=== PATIENT | female | born 1965 | race Two or more races ===

== ENCOUNTER 2022-06-17 04:28 | Day surgery (SDC) | payer OTHER ==
[2022-06-12 11:39] VITALS: BMI 29.7
[~2022-06-17 04:28] MED LIST: BUPIVACAINE HCL/PF 0.75% 10 ML VIAL NR ONE; LIDOCAINE 1% P/F 10 MG/ML VIAL INF ONE
[2022-06-17] MEDS ORDERED: BUPIVACAINE HCL/PF 0.75% 10 ML VIAL ONE (07:33)
[2022-06-17] MEDS ORDERED: LIDOCAINE HCL/PF 1% SDV 5ML VIAL ONE (07:34)
[2022-06-17 09:43] VITALS: RESP 18
[2022-06-17] MEDS ORDERED: LIDOCAINE 1% P/F 10 MG/ML VIAL INF ONE (12:51)
[2022-06-17] MEDS ORDERED: BUPIVACAINE HCL/PF 0.75% 10 ML VIAL NR ONE (12:53)
[2022-06-17 14:51] VITALS: TEMP 97.8
[2022-06-17 14:56] VITALS: BP 109/72; PULSE 72
== END 2022-06-17 13:45 | disposition home or self-care (01) ==
LOC: JASU-SURG 04:28
PROVIDERS: ATTEND Pain Medicine Pain Medicine
PROC: BR16YZZ Fluoroscopy of Lumbar Facet Joint(s) using Other Contrast (ICD-10-PCS; 2022-06-17)
PROC: 3E0T3BZ Introduction of Anesthetic Agent into Peripheral Nerves and Plexi, Percutaneous Approach (ICD-10-PCS; principal; 2022-06-17 11:30)
DX: M47.816 Spondylosis without myelopathy or radiculopathy, lumbar region (principal)
CPT/HCPCS: 76000-TC-FY

== ENCOUNTER 2023-04-14 04:03 | Day surgery (SDC) | payer OTHER ==
[2023-04-09 13:29] VITALS: BMI 29.7
[2023-04-14] MEDS ORDERED: BUPIVACAINE HCL/PF 0.75% 10 ML VIAL ONE (07:20)
[2023-04-14] MEDS ORDERED: LIDOCAINE HCL/PF 1% SDV 5ML VIAL ONE (07:20)
[2023-04-14] MEDS ORDERED: LIDOCAINE HCL 1%, 10 MG/ML (20ML VIAL) INF ONE (10:11)
[2023-04-14] MEDS ORDERED: BUPIVACAINE HCL/PF 0.75% 10 ML VIAL NR ONE (10:11)
[2023-04-14 11:20] VITALS: BP 140/70; PULSE 68; RESP 20; TEMP 97.8
[2023-04-14] MEDS ORDERED: ACETAMINOPHEN 500 MG TABLET (FP) PO PRN (12:59)
== END 2023-04-14 11:00 | disposition home or self-care (01) ==
LOC: JASU-SURG 04:03
PROVIDERS: ATTEND Pain Medicine Pain Medicine
PROC: 3E0T33Z Introduction of Anti-inflammatory into Peripheral Nerves and Plexi, Percutaneous Approach (ICD-10-PCS; 2023-04-14)
PROC: 3E0T3BZ Introduction of Anesthetic Agent into Peripheral Nerves and Plexi, Percutaneous Approach (ICD-10-PCS; principal; 2023-04-14 10:15)
DX: M47.816 Spondylosis without myelopathy or radiculopathy, lumbar region (principal)
CPT/HCPCS: 76000-TC-FY